=== PATIENT | female | born 1965 | race Asian ===

== ENCOUNTER 2024-01-02 11:19 | Emergency (ER) | payer OTHER ==
[~2024-01-02] VITALS: Ht 160 cm; Wt 81.6 kg
[2024-01-02 11:26] VITALS: BP 180/110; PULSE 79; RESP 18; TEMP 97.8; O2SAT 97
[2024-01-02 12:19] LABS: BASOPHILS % (AUTO) 0.2 % (0.0-2.0); EOSINOPHILS % (AUTO) 0.3 % (0.0-4.0); HEMATOCRIT 45.1 % (36-48); HEMOGLOBIN 14.9 g/dL (12.0-16.0); LYMPHOCYTES # (AUTO) 0.5 K/uL (2.5-16.5); LYMPHOCYTES % (AUTO) 4.8 % (20.5-51.1); MEAN CORPUSCULAR HEMOGLOBIN 25 pg (27-31); MEAN CORPUSCULAR HGB CONC 33 g/dL (33-37); MEAN CORPUSCULAR VOLUME 76.3 fL (80-94); MONOCYTES # (AUTO) 0.6 K/uL (0.8-1.0); NEUTROPHILS # (AUTO) 9.4 K/uL (1.8-7.7); NEUTROPHILS % (AUTO) 88.7 % (42.2-75.2); PLATELET COUNT (AUTO) 218 K/uL (140-450); RED BLOOD CELL COUNT(AUTO) 5.91 MIL/uL (4.20-5.40); RED CELL DISTRIBUTION WIDTH 14.2 % (11.6-13.7); WHITE BLOOD COUNT (AUTO) 10.6 K/uL (4.8-10.8)
[2024-01-02] MEDS: NACL 0.9% 1,000 ML IV ONE (12:20)
[2024-01-02 12:49] LABS: ALANINE AMINOTRANSFERASE 71 U/L (12-78); ALBUMIN 3.7 g/dL (3.4-5.0); ALKALINE PHOSPHATASE 81 U/L (50-136); ANION GAP 18.1 (8-16); ASPARTATE AMINOTRANSFERASE 102 U/L (15-37); CALCIUM 9.5 mg/dL (8.5-10.1); CARBON DIOXIDE 22.5 mmol/L (21-32); CHLORIDE 104 mmol/L (98-107); CREATINE KINASE, TOTAL 2289 U/L (26-192); GFR ARICAN-AMERICAN 73 mL/min (>90); GFR NON ARICAN-AMERICAN 61 mL/min (>90); GLUCOSE 178 mg/dL (74-106); POTASSIUM 3.6 mmol/L (3.5-5.1); SODIUM SERUM 141 mmol/L (136-145); TOTAL BILIRUBIN 1.2 mg/dL (0.0-1.0); TOTAL PROTEIN, SERUM 8.1 g/dL (6.4-8.2); UREA NITROGEN, BLOOD 41 mg/dL (7-18)
[2024-01-02 13:54] VITALS: BP 196/94; PULSE 78; RESP 18; TEMP 97.3; O2SAT 99
== END 2024-01-02 13:54 | disposition home or self-care (01) ==
LOC: MED 11:19
DX: I60.8 Other nontraumatic subarachnoid hemorrhage (principal); M25.551 Pain in right hip; R53.1 Weakness; Z79.899 Other long term (current) drug therapy; W18.30XA Fall on same level, unspecified, initial encounter; Y93.89 Activity, other specified; Y92.89 Other specified places as the place of occurrence of the external cause; Y99.8 Other external cause status
CPT/HCPCS: 36415; 70450; 72125; 72170; 80053; 82550; 82553; 84484; 85025; 93005; 96360; 99291; 99292; J7030; Q0092